=== PATIENT | female | born 1985 | race Caucasian/White ===

== ENCOUNTER 2020-03-01 09:02 | Outpatient (CLI) | payer MEDICAID, SELFPAY ==
[2020-03-02 23:52] LABS: COVID-19 RT-PCR Result NEGATIVE (Negative)
== END 2020-03-01 09:22 ==
PROVIDERS: PCP Nurse Practitioner; Visit Provider Nurse Practitioner
DX: Z20.828 Contact with and (suspected) exposure to other viral communicable diseases (principal); Z11.59 Encounter for screening for other viral diseases
CPT/HCPCS: U0003

== ENCOUNTER 2021-08-19 03:49 | Outpatient (CLI) | payer MEDICAID, SELFPAY ==
[2021-08-19 08:20] LABS: HCT 41.1 % (36.0-46.0); HGB 13.1 g/dL (11.2-15.7); MCH 28.5 pg (27.0-33.0); MCHC 31.9 % (32.0-36.0); MCV 89 fL (80-95); MPV 8.8 fL (8.0-11.0); Platelet Count 390 10^3/uL (130-400); RDW 12.5 % (11.7-14.6); RDW-SD 40.9 fL; WBC 8.45 10^3/uL (4.4-10.8)
[2021-08-19 09:08] LABS: Hemoglobin A1C 5.3 % (<5.7)
[2021-08-19 10:14] LABS: ALT 36 U/L (14-59); AST 18 U/L (15-37); Albumin 3.2 g/dL (3.4-5.0); Alkaline Phosphatase 75 U/L (46-116); Anion Gap 7.8 mmol/L (3-11); BUN 13 mg/dL (7-18); Bilirubin, Total 0.5 mg/dL (0.2-1.0); CO2 26.2 mmol/L (21.0-32.0); CREATININE 0.8 mg/dL (0.55-1.02); Calcium 8.9 mg/dL (8.5-10.1); Chloride 106 mmol/L (98-107); Glucose 95 mg/dL (74-106); Potassium 4.5 mmol/L (3.5-5.1); Sodium 140 mmol/L (136-145); TSH (W/Ref FT4) 1.45 uIU/mL (0.36-3.74); Total Protein 7.5 g/dL (6.4-8.2)
[2021-08-19 17:21] LABS: Calculated LDL 79 mg/dL (<100); Cholesterol 143 mg/dL (<200); HDL Cholesterol 46 mg/dL (40-60); Triglyceride 92 mg/dL (<150)
== END 2021-08-19 03:50 | disposition home or self-care (01) ==
LOC: LBO 03:49
PROVIDERS: PCP Nurse Practitioner; Visit Provider Nurse Practitioner
DX: I10 Essential (primary) hypertension (principal); E66.01 Morbid (severe) obesity due to excess calories; Z13.220 Encounter for screening for lipoid disorders; Z13.1 Encounter for screening for diabetes mellitus
CPT/HCPCS: 36415; 80053; 80061; 85027; 83036; 84443

== ENCOUNTER 2022-07-20 17:35 | Emergency (ER) | payer MEDICAID, SELFPAY ==
[2022-07-20] VITALS (9 sets, daily range): BP systolic 130–153; BP diastolic 67–103; PULSE 90–107; RESP 24; TEMP 36.6; O2SAT 97–100
--- NOTE | 2022-07-20 17:49 | W.ED.GENAD ---
Discharge Plan Disposition Patient Disposition: Transfer-Acute Inpatient Care Specific Acute Inpt Facility: [facility] Condition: Stable Discharge Details Clinical Impression: Hydronephrosis with urinary obstruction due to renal calculus, UTI (urinary tract infection) Primary Care Provider: Debby Kauffman ED Provider: Janay Hutchinson Home Meds and New Rx's Prescriptions: No Action No Known Home Meds Medical Decision Making 37-year-old female presents to the ER with a chief complaint of right flank pain which has been on and off for the last week started around 10 AM this morning and has been constant since. Associated with nausea vomiting and loose stools. Denies any fever chills problems urinating or any other associated symptoms. Does have a past medical history of cholecystectomy and , obesity depression. She has not taken any medication for this prior to arrival. Work-up ordered including CBC CMP, lipase urinalysis CT abdomen pelvis liter of normal saline morphine and Zofran. CBC shows leukocytosis with a white blood cell count of 17.98, platelets 433 absolute neutrophils 15.44, sodium 135 BUN is 16 creatinine 1.1 GFR is 65, glucose 127 magnesium slightly low at 1.5, urinalysis shows 30 protein trace ketones moderate blood moderate leukocytes 5-10 RBCs and 20-50 WBCs. Culture is pending at this time. Discussed results with patient and family, they verbalized understanding. We will consult with urology at [facility] [place]. Rocephin 1 g ordered and additional morphine. 190: [facility] [place] called for possible transfer versus urology consult. 1918: Dr. Cueva, with urology accepts for ED to ED transfer for further eval. Spoke with [facility] ED provider, Dr. Quarles. Discussed plan of care with patient and family who verbalized understanding. Will arrange for transportation. 2030: EMS here patient given an additional 4mg Morphine prior to discharge. This text was generated using [employer] dictation system, please disregard any oddities of phrase or misspellings. Medical Records Medical records reviewed: Yes I reviewed the patient's medical records. Imaging Data Radiologic Study: Imaging: CT Scan Radiologist's impression: FINDINGS: Limitations: Examination degraded by diffuse technical artifact. Low aiwrxk-[id number] ratio with limited resolution. Lungs: Lung bases clear. Liver: Diffuse fatty infiltration of the liver. Gallbladder and bile ducts: Prior cholecystectomy with postop biliary dilatation. Pancreas: Grossly unremarkable unenhanced pancreas. Spleen: Grossly unremarkable unenhanced spleen. Adrenal glands: Normal appearing adrenal glands. Kidneys and ureters: 13 mm x 7 mm stone in the right proximal ureter at the ureteropelvic junction with at least mild hydronephrosis and perinephric edema/fluid. No additional radiopaque urinary tract stones. No left-sided hydronephrosis. Stomach and bowel: No oral contrast. Stomach partially decompressed. No small bowel dilatation to suggest obstruction. Colon largely well evacuated. No evidence of diverticulitis or colitis. Appendix: Normal appendix. Intraperitoneal space: No gross ascites or free air. Vasculature: Normal caliber abdominal aorta. Lymph nodes: Scattered small retroperitoneal lymph nodes, nonspecific. Clustered small external iliac nodes and groin nodes also present. Urinary bladder: Urinary bladder collapsed and not well evaluated but grossly unremarkable, as seen. Reproductive: Uterus and ovaries partially obscured but normal in size. Bones/joints: No acute fracture seen among the bones of the abdomen or pelvis. Spinal degenerative change with anterior osteophytes in the lower thoracic region. Soft tissues: Small fat containing ventral hernia at the umbilicus. IMPRESSION: 1. 13 mm x 7 mm obstructing stone at the right ureteropelvic junction. 2. Diffuse fatty infiltration of the liver. Thank you for allowing us to participate in the care of your patient. Dictated and Authenticated by: Wilbert Mckinney MD Lab Data Lab results reviewed: Yes I reviewed the patient's lab results. Labs: 07/20/22 18:20 Urine - Reflex from Ua Urine Culture - Pending Laboratory Tests Range/Units 07/20/22 07/20/22 07/20/22 17:50 17:50 18:20 WBC (4.4-10.8) 10^3/uL 17.98 H RBC (3.93-5.22) 10^6/uL 4.85 Hgb (11.2-15.7) g/dL 13.9 Hct (36.0-46.0) % 41.5 MCV (80-95) fL 86 MCH (27.0-33.0) pg 28.7 MCHC (32.0-36.0) % 33.5 RDW (11.7-14.6) % 12.4 Plt Count (130-400) 10^3/uL 433 H MPV (8.0-11.0) fL 8.6 Immature Gran % 0.3 Neutrophils % 85.9 Lymphocytes % 9.0 Monocytes % 4.4 Eosinophils % 0.1 Basophils % 0.3 Nucleated RBC % (0.0-0.3) % 0.0 Absolute Neutrophils (1.2-6.7) 10^3/uL 15.44 H Absolute Lymphocytes (1.2-3.4) 10^3/uL 1.62 Absolute Monocytes (0.1-0.8) 10^3/uL 0.79 Absolute Eosinophils (0.0-0.7) 10^3/uL 0.02 Absolute Basophils (0.0-0.2) 10^3/uL 0.05 Sodium (136-145) mmol/L 135 L Potassium (3.5-5.1) mmol/L 4.1 Chloride (98-107) mmol/L 103 Carbon Dioxide (21.0-32.0) mmol/L 24.5 Anion Gap (3-11) mmol/L 7.5 BUN (7-18) mg/dL 16 Creatinine (0.55-1.02) mg/dL 1.1 H Est GFR (CKD-EPI 2020) (mL/min/1.73m2) 65.96 Glucose (74-106) mg/dL 127 H Calcium (8.5-10.1) mg/dL 9.3 Magnesium (1.8-2.4) mg/dL 1.5 L Total Bilirubin (0.2-1.0) mg/dL 0.6 AST (15-37) U/L 20 ALT (14-59) U/L 31 Alkaline Phosphatase (46-116) U/L 80 Total Protein (6.4-8.2) g/dL 8.1 Albumin (3.4-5.0) g/dL 3.2 L Lipase (16-77) U/L 21 Urine Color (Yellow) Yellow Urine Clarity (Clear) Cloudy Urine pH (5-8) 7.0 Ur Specific [place] (1.005-1.025) 1.025 Urine Protein (Negative) mg/dL 30 H Urine Ketones (Negative) mg/dL Trace H Urine Blood (Negative) Moderate H Urine Nitrite (Negative) Negative Urine Bilirubin (Negative) Negative Urine Urobilinogen (Up to 0.2) mg/dL 0.2 Ur Leukocyte Esterase (Negative) Moderate H Urine RBC (0-2) HPF 5-10 H Urine WBC (0-5) HPF 20-50 H Ur Epithelial Cells (Negative) HPF Few Urine Crystals (Negative) HPF Negative Urine Bacteria (Negative) HPF Moderate Urine Casts (Negative) LPF Negative Urine Mucus (Negative) Trace Ur Culture Indicated? Yes Urine Glucose (Negative) mg/dL Negative HPI General Mode of arrival: ambulatory. Date/Time Provider Initiated Documentation: 07/20/22 17:36. Limitations to Documentation: no limitations. Information obtained by: patient, RN notes reviewed and old records reviewed. HPI Narrative: 37-year-old female presents to the ER with a chief complaint of right flank pain which has been on and off for the last week started around 10 AM this morning and has been constant since. Associated with nausea vomiting and loose stools. Denies any fever chills problems urinating or any other associated symptoms. Does have a past medical history of cholecystectomy and , obesity depression. She has not taken any medication for this prior to arrival. Related Data Home Medications Medication Instructions Recorded Confirmed Unknown [No Known Home Meds] 07/20/22 07/20/22 Allergies Allergy/AdvReac Type Severity Reaction Status Date / Time No Known Allergies Allergy Verified 07/20/22 17:44 General Stated Complaint: Abd Prob KEN: 3 Review of Systems Gastrointestinal Gastrointestinal: Reports abdominal pain, Reports nausea and Reports vomiting PFSH All Active Problems (Updated 07/20/22 @ 19:33 by Janay Hutchinson NP) Hydronephrosis with urinary obstruction due to renal calculus (Acute) UTI (urinary tract infection) (Acute) Depression (Chronic 08/11/14) Snoring (Acute 09/22/14) Pyoderma gangrenosum (Acute 08/03/17) DR OSBORNE Peritonsillar cellulitis (Acute 04/17/15) Pain associated with wound (Acute 09/10/17) Morbid obesity (Acute 08/17/13) 07/2013: BMI 54.7 Surgical History section Cholecystectomy Family History Mother Diabetes Hyperlipidemia Grandmother Diabetes Heart disease Stroke Social History Smoking/Tobacco Use Status: Current every day Tobacco Type: cigarettes Quit status: has quit before Smoking risk assessment performed?: Yes Alcohol Intake: current Alcohol Intake frequency: a few times a month Drug use: Daily Substance use type: marijuana Adopted: No Caregiver/Support person: No Foster care: No Household members: children Number of Children: 3 Communication Needs: None Education Level: college Details: associates degree Do you need help understanding health information?: Never 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 Pets and animals: Yes Pets and animals: cat(s) and dog(s) Sexually active: Yes Do you think of yourself as: straight/heterosexual Current gender identity: female How often do you talk on the phone with friends or family?: three or more times per week How often do you get together with friends or relatives?: once per week Do you belong to any clubs or organized social groups?: no Panel score (0-1 are the most socially isolated patients): 1 What type of physical activity do you participate in: walking Duration: 30-45 minutes/day Frequency: daily Keiry/Sabianist: Evangelical Special keiry needs: No Seatbelt use: sometimes Helmet use: Yes Drive intox or ride w/intox goat driver: No Do you feel safe at home: Yes Do you feel safe in your relationship?: Yes Exam Narrative Exam Narrative: Constitutional: Alert and oriented x3. Appears stated age. Morbidly obese body habitus. Head: Normocephalic, no trauma. Eyes: Pupils PERRL, Red reflex noted, EOM's intact. Eyelids symmetrical without lesions, discharge, or swelling. ENT: Bilateral TM's WNL, External ear normal to inspection, no mastoid TTP, swelling, or erythema, Nasal turbinates WNL, no nasal discharge. Normal dentition, Posterior pharynx WNL, no exudate. Chest: RRR, Normal S1, S2, distal pulses intact. Resp: Lungs clear to auscultation bilaterally, no wheezes, rales, or rhonchi. Abdomen: Soft, non-distended, Normoactive bowel sounds all 4 quads. Nontender to palpation all 4 quadrants. Musculoskeletal: Normal gait, 5/5 strength to all four extremities. Skin: No suspicious rashes or lesions. Capillary refill less than 2 sec. Neurologic: Cranial nerves II-XII intact. Alert and oriented x 3. Motor: No deficits noted. Sensory: Intact bilaterally all 4 extremities. Reflexes: DTR's intact bilaterally.. Hematologic/Lymphatic: No ecchymosis, no lymphadenopathy. Course Vital Signs Vital signs: Vital Signs Temperature 36.6 C 07/20/22 17:41 Pulse 107 H 07/20/22 17:41 Respiratory Rate 24 07/20/22 17:41 Blood Pressure 153/103 H 07/20/22 17:41 Pulse Oximetry 100 07/20/22 17:41 Temperature 36.6 C 07/20/22 17:41 Temperature Source Oral 07/20/22 17:41 Pulse 107 H 07/20/22 17:41 Respiratory Rate 24 07/20/22 17:41 Respiratory Effort Normal 07/20/22 17:43 Blood Pressure 153/103 H 07/20/22 17:41 Blood Pressure Position Supine 07/20/22 17:41 Pulse Oximetry 100 07/20/22 17:41 Oxygen Delivery Method Room Air 07/20/22 17:41 Oxygen Flow Rate 0 07/20/22 17:41 Pain Level 10 07/20/22 17:41
[2022-07-20 17:58] LABS: Abs Immature Grans 0.06 10^3/uL (0.0-0.06); Absolute Eosinophil Count 0.02 10^3/uL (0.0-0.7); Absolute Lymphocyte Count 1.62 10^3/uL (1.2-3.4); Absolute Monocyte Count 0.79 10^3/uL (0.1-0.8); Basophils % 0.3; Eosinophils % 0.1; HCT 41.5 % (36.0-46.0); HGB 13.9 g/dL (11.2-15.7); Immature Grans % 0.3; MCH 28.7 pg (27.0-33.0); MCHC 33.5 % (32.0-36.0); MCV 86 fL (80-95); MPV 8.6 fL (8.0-11.0); Monocytes % 4.4; Neutrophils % 85.9; Platelet Count 433 10^3/uL (130-400); RBC 4.85 10^6/uL (3.93-5.22); RDW 12.4 % (11.7-14.6); RDW-SD 38.5 fL; WBC 17.98 10^3/uL (4.4-10.8)
[2022-07-20 18:00] LABS: Absolute Basophil Count 0.05 10^3/uL (0.0-0.2); Absolute Neutrophil Count 15.44 10^3/uL (1.2-6.7)
[2022-07-20 18:14] LABS: ALT 31 U/L (14-59); AST 20 U/L (15-37); Albumin 3.2 g/dL (3.4-5.0); Alkaline Phosphatase 80 U/L (46-116); Anion Gap 7.5 mmol/L (3-11); BUN 16 mg/dL (7-18); Bilirubin, Total 0.6 mg/dL (0.2-1.0); CO2 24.5 mmol/L (21.0-32.0); CREATININE 1.1 mg/dL (0.55-1.02); Calcium 9.3 mg/dL (8.5-10.1); Chloride 103 mmol/L (98-107); Estimated GFR 65.96 (mL/min/1.73m2); Glucose 127 mg/dL (74-106); Lipase 21 U/L (16-77); Magnesium 1.5 mg/dL (1.8-2.4); Potassium 4.1 mmol/L (3.5-5.1); Sodium 135 mmol/L (136-145); Total Protein 8.1 g/dL (6.4-8.2)
[2022-07-20] MEDS: Normal Saline 1,000 ML 1000 ML IV (18:15)
[2022-07-20] MEDS: MORPHine 4 MG/ML SYR IVP ×3 (18:15→20:30)
[2022-07-20] MEDS: Ondansetron 4 MG/2 ML VIAL IVP (18:15)
[2022-07-20 18:25] LABS: Bilirubin Negative (Negative); Blood Moderate (Negative); Clarity Cloudy (Clear); Glucose Negative (Negative); Ketones Trace mg/dL (Negative); Leukocyte Esterase Moderate (Negative); Nitrite Negative (Negative); Specific Gravity 1.025 (1.005-1.025); Urobilinogen 0.2 mg/dL (Up to 0.2)
--- NOTE | 2022-07-20 18:31 | NUR.NOTE ---
Nursing Note: Pt to CT via stretcher at this time.
[2022-07-20 18:32] LABS: Bacteria Moderate HPF (Negative); C & S Indicated? Yes; Casts Negative LPF (Negative); Crystals Negative HPF (Negative); Epithelial Cells Few HPF (Negative); Mucus Trace (Negative); WBC 20-50 HPF (0-5)
--- NOTE | 2022-07-20 18:45 | DI.CT_ITS ---
Exam(s) CT ABDOMEN PELVIS WO EXAM: CT ABDOMEN PELVIS WO CLINICAL HISTORY: Right Flank pain. TECHNIQUE: Imaging Protocol: Axial computed tomography images with coronal and sagittal reformatted images were created and reviewed. COMPARISON: No exams were available for comparison FINDINGS: Examination limited by patient body habitus. There is patient motion artifact present also. ABDOMEN: Lung Bases: Normal where visualized. Liver: There is diffuse decreased attenuation of the liver consistent with fatty infiltration. The l iver is enlarged. No measurable mass. Gallbladder and biliary tract: Status post cholecystectomy. No significant biliary ductal dilatation . Pancreas: Normal density, no abnormal calcifications or inflammatory process. Spleen: Normal. Kidneys: Normal size, contour and axis.There is a 1.4 cm stone in the right UPJ causing moderate hydr onephrosis. There is stranding around the right kidney. No other renal stones are seen. No masses seen. Adrenal glands: No mass is seen. Lymph nodes: Within normal limits. Abdominal Aorta: Abdominal portion non-dilated. PELVIS: Bladder:Symmetric distention, no gross wall thickening. Bowel: No obstruction or bowel wall thickening. Appendix is unremarkable. Peritoneal cavity: No ascites, collection or mesenteric inflammatory response. No free air. Reproductive organs: Unremarkable as visualized. Bones: Within normal limits. Soft Tissues: Within normal limits. IMPRESSION: 1.4 cm right UPJ stone causing moderate hydronephrosis. RADIATION DOSE DELIVERED: 1,711.21mGy.cm Total DLP DATA REPOSITORY: All CT scans at this facility are submitted to the National Radiology Data Registry (NRDR) Dose Index Registry (DIR) with the [employer] (ACR). RADIATION OPTIMIZATION: All CT scans at this facility use at least one of these dose optimization te chniques: automated exposure control; mA and/or kV adjustment per patient size (includes targeted exa ms where dose is matched to clinical indication); or iterative reconstruction.
--- NOTE | 2022-07-20 18:56 | DI.VRAD_ITS ---
PROCEDURE INFORMATION: Exam: CT Abdomen And Pelvis Without Contrast Exam date and time: 07/20/2022 6:34 PM Age: 37 years old Clinical indication: Abdominal pain; Patient HX: Right flank pain TECHNIQUE: Imaging protocol: Computed tomography of the abdomen and pelvis without contrast. COMPARISON: No relevant prior studies available. FINDINGS: Limitations: Examination degraded by diffuse technical artifact. Low xhtzhv-vq-hjehu ratio with limited resolution. Lungs: Lung bases clear. Liver: Diffuse fatty infiltration of the liver. Gallbladder and bile ducts: Prior cholecystectomy with postop biliary dilatation. Pancreas: Grossly unremarkable unenhanced pancreas. Spleen: Grossly unremarkable unenhanced spleen. Adrenal glands: Normal appearing adrenal glands. Kidneys and ureters: 13 mm x 7 mm stone in the right proximal ureter at the ureteropelvic junction with at least mild hydronephrosis and perinephric edema/fluid. No additional radiopaque urinary tract stones. No left-sided hydronephrosis. Stomach and bowel: No oral contrast. Stomach partially decompressed. No small bowel dilatation to suggest obstruction. Colon largely well evacuated. No evidence of diverticulitis or colitis. Appendix: Normal appendix. Intraperitoneal space: No gross ascites or free air. Vasculature: Normal caliber abdominal aorta. Lymph nodes: Scattered small retroperitoneal lymph nodes, nonspecific. Clustered small external iliac nodes and groin nodes also present. Urinary bladder: Urinary bladder collapsed and not well evaluated but grossly unremarkable, as seen. Reproductive: Uterus and ovaries partially obscured but normal in size. Bones/joints: No acute fracture seen among the bones of the abdomen or pelvis. Spinal degenerative change with anterior osteophytes in the lower thoracic region. Soft tissues: Small fat containing ventral hernia at the umbilicus. IMPRESSION: 1. 13 mm x 7 mm obstructing stone at the right ureteropelvic junction. 2. Diffuse fatty infiltration of the liver. Dictated and Authenticated by: Wilbert Mckinney MD. Ordering:SAMY Gustafson MD
[2022-07-20] MEDS: cefTRIAXone 1 GM/50 ML BAG IVPB (19:10)
[2022-07-20] MEDS: Magnesium Oxide 400 MG TAB PO (19:44)
== END 2022-07-20 20:29 | disposition short-term general hospital (02) ==
PROVIDERS: Emergency Provider Registered Nurse Emergency; PCP Nurse Practitioner
DX: N13.2 Hydronephrosis with renal and ureteral calculous obstruction (principal); N39.0 Urinary tract infection, site not specified; D72.829 Elevated white blood cell count, unspecified; E66.01 Morbid (severe) obesity due to excess calories
CPT/HCPCS: 80053; 81025; 83690; 87077; 96361; 96365; 96375; 96376; 99285; 74176; 81003; 81015; 83735; 85025; 87086; 87186; J0696; J2270; J2405

== ENCOUNTER 2023-07-15 04:14 | Outpatient (RCR) | payer MEDICAID, SELFPAY ==
[2023-07-15 08:55] VITALS: BP 134/88; PULSE 89; RESP 20; TEMP 37.1; O2SAT 100
[2023-07-15] MEDS: Normal Saline Flush 10 ML SYR IVP (09:23)
[2023-07-15 10:00] VITALS: BP 124/80; PULSE 86; RESP 20; TEMP 36.8; O2SAT 97
[2023-07-15 10:30] VITALS: BP 116/78; PULSE 86; RESP 20; TEMP 36.8; O2SAT 100
[2023-07-15 11:00] VITALS: BP 132/78; PULSE 75; RESP 18; TEMP 36.8; O2SAT 99
[2023-07-15 11:30] VITALS: BP 129/75; PULSE 72; RESP 20; TEMP 36.8; O2SAT 99
== END 2023-07-28 23:59 | disposition home or self-care (01) ==
LOC: INF 04:14
PROVIDERS: PCP Nurse Practitioner; Visit Provider Nurse Practitioner Family
DX: L88 Pyoderma gangrenosum (principal)
CPT/HCPCS: 96365; 96366; Q5103

== ENCOUNTER 2023-08-26 04:51 | Outpatient (RCR) | payer MEDICAID, SELFPAY ==
[2023-07-29 00:15] VITALS: BP 129/75; PULSE 72; RESP 20; TEMP 36.8
[2023-07-29 08:55] VITALS: BP 141/89; PULSE 102; RESP 18; TEMP 36.8; O2SAT 97
[2023-07-29] MEDS: Normal Saline Flush 10 ML SYR IVP (09:47)
[2023-07-29 10:48] VITALS: BP 134/80; PULSE 102; RESP 18; TEMP 36.8; O2SAT 98
[2023-07-29 11:55] VITALS: BP 136/84; PULSE 82; RESP 18; TEMP 36.7; O2SAT 97
[2023-08-26] MEDS: Normal Saline Flush 10 ML SYR IVP (09:00)
[2023-08-26 09:40] VITALS: BP 133/83; PULSE 87; RESP 16; TEMP 36.9; O2SAT 95
[2023-08-26 10:10] VITALS: BP 135/96; PULSE 86; RESP 16; TEMP 37.1; O2SAT 99
[2023-08-26 10:40] VITALS: BP 131/86; PULSE 75; RESP 16; TEMP 36.6; O2SAT 98
[2023-08-26 11:10] VITALS: BP 121/78; PULSE 82; RESP 16; TEMP 36.9; O2SAT 98
[2023-08-26 11:50] VITALS: BP 107/74; PULSE 82; RESP 16; TEMP 36.7; O2SAT 99
== END 2023-08-28 23:59 | disposition home or self-care (01) ==
LOC: INF 04:51
PROVIDERS: PCP Nurse Practitioner; Visit Provider Nurse Practitioner Family
DX: L88 Pyoderma gangrenosum (principal)
CPT/HCPCS: 96365; 96366; Q5103

== ENCOUNTER 2023-10-28 01:39 | Outpatient (RCR) | payer MEDICAID, SELFPAY ==
[2023-08-29 00:23] VITALS: BP 129/75; PULSE 72; RESP 20; TEMP 36.8
[2023-10-28] MEDS: Loratidine 10 MG TAB (09:04)
[2023-10-28] MEDS: Normal Saline Flush 10 ML SYR IVP (09:05)
[2023-10-28] MEDS: Acetaminophen 325 MG TAB ×2 (09:05)
[2023-10-28 09:38] VITALS: BP 137/89; PULSE 89; RESP 16; TEMP 36.7; O2SAT 98
[2023-10-28 10:10] VITALS: BP 155/98; PULSE 83; RESP 16; TEMP 36.6; O2SAT 100
[2023-10-28 10:40] VITALS: BP 147/82; PULSE 78; RESP 16; TEMP 36.7; O2SAT 98
[2023-10-28 11:10] VITALS: BP 146/86; PULSE 80; RESP 16; TEMP 36.5; O2SAT 99
[2023-10-28 11:40] VITALS: BP 135/82; PULSE 77; RESP 16; TEMP 36.7; O2SAT 98
== END 2023-10-28 23:59 | disposition home or self-care (01) ==
LOC: INF 01:39
PROVIDERS: PCP Nurse Practitioner; Visit Provider Nurse Practitioner Family
DX: L88 Pyoderma gangrenosum (principal)
CPT/HCPCS: 96365; 96366; Q5103

== ENCOUNTER 2023-12-23 02:16 | Outpatient (RCR) | payer MEDICAID, SELFPAY ==
[2023-10-29 00:03] VITALS: BP 129/75; PULSE 72; RESP 20; TEMP 36.8
[2023-12-23] MEDS: Loratidine 10 MG TAB PO (09:10)
[2023-12-23] MEDS: Acetaminophen 325 MG TAB 650 MG PO (09:10)
[2023-12-23] MEDS: Normal Saline Flush 10 ML SYR IVP (09:12)
[2023-12-23 09:55] VITALS: BP 120/76; PULSE 83; RESP 17; TEMP 36.4; O2SAT 98
[2023-12-23 10:25] VITALS: BP 136/83; PULSE 80; RESP 16; TEMP 36.5; O2SAT 100
[2023-12-23 10:55] VITALS: BP 122/82; PULSE 79; RESP 16; TEMP 36.4; O2SAT 99
[2023-12-23 11:25] VITALS: BP 141/85; PULSE 79; RESP 16; TEMP 36.5; O2SAT 99
[2023-12-23 11:55] VITALS: BP 132/80; PULSE 72; RESP 16; TEMP 36.5; O2SAT 99
== END 2023-12-28 23:59 | disposition home or self-care (01) ==
LOC: INF 02:16
PROVIDERS: PCP Nurse Practitioner; Visit Provider Nurse Practitioner Family
DX: L88 Pyoderma gangrenosum (principal)
CPT/HCPCS: 96365; 96366; Q5103

== ENCOUNTER 2024-02-16 02:55 | Outpatient (RCR) | payer MEDICAID, SELFPAY ==
[2023-12-29 00:18] VITALS: BP 129/75; PULSE 72; RESP 20; TEMP 36.8
[2024-02-16] MEDS: Acetaminophen 325 MG TAB 650 MG PO (08:50)
[2024-02-16] MEDS: Loratidine 10 MG TAB PO (08:50)
[2024-02-16] MEDS: Normal Saline Flush 10 ML SYR IVP (09:50)
[2024-02-16 09:51] VITALS: BP 139/82; PULSE 93; RESP 18; TEMP 36.3; O2SAT 98
[2024-02-16 10:20] VITALS: BP 117/85; PULSE 88; RESP 18; TEMP 36.4; O2SAT 98
[2024-02-16 10:50] VITALS: BP 127/84; PULSE 74; RESP 17; TEMP 36.3; O2SAT 100
[2024-02-16 11:20] VITALS: BP 134/82; PULSE 78; RESP 78; TEMP 36.5; O2SAT 99
[2024-02-16 11:50] VITALS: BP 118/76; PULSE 78; RESP 18; TEMP 36.4; O2SAT 99
== END 2024-02-27 23:59 | disposition home or self-care (01) ==
LOC: INF 02:55
PROVIDERS: PCP Nurse Practitioner; Visit Provider Nurse Practitioner Family
DX: L88 Pyoderma gangrenosum (principal)
CPT/HCPCS: 96365; 96366; Q5103

== ENCOUNTER 2024-04-13 02:45 | Outpatient (RCR) | payer MEDICAID, SELFPAY ==
[2024-02-28 00:18] VITALS: BP 129/75; PULSE 72; RESP 20; TEMP 36.8
[2024-04-13] MEDS: Loratidine 10 MG TAB PO (08:44)
[2024-04-13] MEDS: Acetaminophen 325 MG TAB 650 MG PO (08:44)
[2024-04-13 08:58] VITALS: BP 130/76; PULSE 83; RESP 18; TEMP 36.9; O2SAT 98
[2024-04-13] MEDS: Normal Saline Flush 10 ML SYR IVP (09:54)
[2024-04-13 11:57] VITALS: BP 142/82; PULSE 87; RESP 18; TEMP 37.2; O2SAT 99
== END 2024-04-29 23:59 | disposition home or self-care (01) ==
LOC: INF 02:45
PROVIDERS: PCP Nurse Practitioner; Visit Provider Nurse Practitioner Family
DX: L88 Pyoderma gangrenosum (principal)
CPT/HCPCS: 96365; 96366; Q5103

== ENCOUNTER 2024-05-27 01:44 | Outpatient (RCR) | payer MEDICAID, SELFPAY ==
[2024-05-27 08:46] VITALS: BP 138/94; PULSE 86; RESP 17; TEMP 36.9; O2SAT 98
[2024-05-27] MEDS: Normal Saline Flush 5 ML SYR IVP (09:26)
[2024-05-27 10:15] VITALS: BP 145/91; PULSE 85; RESP 18; TEMP 37.6; O2SAT 98
[2024-05-27 10:50] VITALS: BP 143/85; PULSE 83; RESP 18; TEMP 37.7; O2SAT 98
[2024-05-27 11:20] VITALS: BP 126/83; PULSE 82; RESP 17; TEMP 36.8; O2SAT 98
[2024-05-27] MEDS: Normal Saline Flush 10 ML SYR IVP (11:45)
== END 2024-05-27 23:59 | disposition home or self-care (01) ==
LOC: INF 01:44
PROVIDERS: PCP Nurse Practitioner; Visit Provider Nurse Practitioner Family
DX: L88 Pyoderma gangrenosum (principal)
CPT/HCPCS: 96365; 96366; Q5103

== ENCOUNTER 2024-07-07 01:41 | Outpatient (RCR) | payer MEDICAID, SELFPAY ==
[2024-07-07] MEDS: Normal Saline Flush 5 ML SYR IVP (09:03)
[2024-07-07] MEDS: Loratidine 10 MG TAB PO (09:03)
[2024-07-07 09:55] VITALS: BP 153/95; PULSE 97; RESP 16; TEMP 37.1; O2SAT 97
[2024-07-07 10:25] VITALS: BP 130/81; PULSE 87; RESP 16; TEMP 36.6; O2SAT 98
[2024-07-07 10:55] VITALS: BP 146/82; PULSE 85; RESP 16; TEMP 37.1; O2SAT 97
[2024-07-07 11:25] VITALS: BP 134/89; PULSE 87; RESP 16; TEMP 36.4; O2SAT 98
[2024-07-07 12:00] VITALS: BP 137/83; PULSE 87; RESP 16; TEMP 35.8; O2SAT 97
== END 2024-07-27 23:59 | disposition home or self-care (01) ==
LOC: INF 01:41
PROVIDERS: PCP Nurse Practitioner; Visit Provider Nurse Practitioner Family
DX: L88 Pyoderma gangrenosum (principal)
CPT/HCPCS: 96365; 96366; Q5103

== ENCOUNTER 2024-08-25 02:57 | Outpatient (RCR) | payer MEDICAID, SELFPAY ==
[2024-08-25] MEDS: Normal Saline Flush 10 ML SYR IVP (10:00)
[2024-08-25 10:04] VITALS: BP 147/90; PULSE 96; RESP 16; TEMP 36.6; O2SAT 98
[2024-08-25 10:35] VITALS: BP 135/77; PULSE 75; RESP 17; TEMP 36.6; O2SAT 98
[2024-08-25 11:05] VITALS: BP 158/83; PULSE 89; RESP 17; TEMP 36.7; O2SAT 97
[2024-08-25 11:35] VITALS: BP 163/85; PULSE 87; RESP 17; TEMP 36.5; O2SAT 98
[2024-08-25 12:05] VITALS: BP 133/81; PULSE 80; RESP 17; TEMP 37; O2SAT 98
== END 2024-08-27 23:59 | disposition home or self-care (01) ==
LOC: INF 02:57
PROVIDERS: PCP Nurse Practitioner; Visit Provider Nurse Practitioner Family
DX: L88 Pyoderma gangrenosum (principal)
CPT/HCPCS: 96365; 96366; Q5103

== ENCOUNTER 2024-10-06 01:43 | Outpatient (RCR) | payer MEDICAID, SELFPAY ==
[2024-10-06] MEDS: Acetaminophen 325 MG TAB 650 MG PO (09:09)
[2024-10-06] MEDS: Loratidine 10 MG TAB (09:18)
[2024-10-06 10:15] VITALS: BP 142/96; PULSE 85; RESP 20; TEMP 36.3; O2SAT 99
[2024-10-06 10:55] VITALS: BP 128/80; PULSE 83; RESP 22; TEMP 36.4; O2SAT 98
[2024-10-06 11:29] VITALS: BP 132/87; PULSE 81; RESP 17; TEMP 37.2; O2SAT 98
[2024-10-06 12:00] VITALS: BP 129/84; PULSE 89; RESP 20; TEMP 36.4; O2SAT 99
[2024-10-06] MEDS: Normal Saline Flush 10 ML SYR IVP (13:10)
== END 2024-10-27 23:59 | disposition home or self-care (01) ==
LOC: INF 01:43
PROVIDERS: PCP Nurse Practitioner; Visit Provider Nurse Practitioner Family
DX: L88 Pyoderma gangrenosum (principal)
CPT/HCPCS: 96365; 96366; Q5103